=== PATIENT | female | born 1975 | race Caucasian/White ===

== ENCOUNTER 2019-10-07 17:15 | Emergency (ER) | payer OTHER ==
[~2019-10-07] VITALS: Ht 165.1 cm; Wt 63.5 kg
[~2019-10-07 17:15] MED LIST: BACTRIM DS 8001 TA1 PO; CEPHALEXIN500 M1 PO; EC NAPROSYN500 MG PO; MEDROL DOSEPAK4 MG PO; NORCO 5-325 TA1 EACH PO
[2019-10-07 17:16] VITALS: BP 117/63
[2019-10-07 17:46] LABS: BILIRUBIN NEGATIVE (NEGATIVE); BLOOD NEGATIVE (NEGATIVE); CLARITY SL CLOUDY (CLEAR); COLOR YELLOW (YELLOW); GLUCOSE NEGATIVE (NEGATIVE); KETONE NEGATIVE (NEGATIVE); LEUKO ESTERASE TRACE (NEGATIVE); NITRITE NEGATIVE (NEGATIVE); UROBILINOGEN 0.2 E.U./dl (0.2-1.0)
[2019-10-07 17:57] LABS: BACTERIA 1+; EPITHELIAL CELLS 16-20
[2019-10-08] MEDS ORDERED: Motrin,Rufen800 MG PO (17:27)
== END 2019-10-08 18:18 | disposition home or self-care (01) ==
LOC: ED 17:15
PROVIDERS: Nurse Practitioner Family
DX: J02.9 Acute pharyngitis, unspecified (principal); Z20.2 Contact with and (suspected) exposure to infections with a predominantly sexual mode of transmission; Z88.0 Allergy status to penicillin; Z79.2 Long term (current) use of antibiotics; Z79.899 Other long term (current) drug therapy

== ENCOUNTER 2019-10-26 12:36 | Emergency (ER) | payer OTHER ==
[~2019-10-26] VITALS: Ht 165.1 cm; Wt 65.8 kg
[~2019-10-26 12:36] MED LIST changes: +Motrin,Rufen800 MG PO
[2019-10-26 12:37] VITALS: BP 116/78
[2019-10-26] MEDS ORDERED: ZITHROMAX250 MG PO (12:58)
== END 2019-10-26 13:00 | disposition home or self-care (01) ==
LOC: ED 12:36
DX: H66.93 Otitis media, unspecified, bilateral (principal); Z88.0 Allergy status to penicillin; Z79.2 Long term (current) use of antibiotics; Z79.899 Other long term (current) drug therapy

== ENCOUNTER 2020-07-29 15:08 | Emergency (ER) | payer SELFPAY ==
[~2020-07-29] VITALS: Ht 162.5 cm; Wt 72.6 kg
[~2020-07-29 15:08] MED LIST changes: +ZITHROMAX250 MG PO
[2020-07-29 15:14] VITALS: BP 117/75
== END 2020-07-29 16:30 | disposition home or self-care (01) ==
LOC: ED 15:08
DX: S60.012A Contusion of left thumb without damage to nail, initial encounter (principal); F17.200 Nicotine dependence, unspecified, uncomplicated; Z88.0 Allergy status to penicillin; W18.39XA Other fall on same level, initial encounter; Y93.89 Activity, other specified; Y92.89 Other specified places as the place of occurrence of the external cause; Y99.8 Other external cause status

== ENCOUNTER 2021-01-11 15:48 | Emergency (ER) | payer OTHER ==
[2021-01-11 16:07] VITALS: BP 121/76
[2021-01-11 16:20] LABS: BASO # 0.1 10*3/uL (0.0-0.1); BASO % 0.6 % (0.0-1.0); EOS # 0.1 10*3/uL (0.0-0.4); EOS % 0.6 % (1.0-4.0); HEMATOCRIT 42.6 % (37.0-47.0); LYMPH # 2.5 10*3/uL (1.3-4.4); LYMPH % 26.7 % (27.0-41.0); MEAN CELL VOLUME 92.2 fl (81.0-99.0); MEAN CORPUSCULAR HGB 30.5 pg (27.0-31.0); MEAN CORPUSCULAR HGB CONC 33.1 g/dl (33.0-37.0); MEAN PLATELET VOLUME 8.7 fl (9.6-12.3); MONO % 10.4 % (3.0-9.0); NEUT # 5.8 10*3/uL (2.3-7.9); NEUT % 61.3 % (47.0-73.0); PLATELET COUNT AUTOMATED 339 10*3/uL (130-400); RED BLOOD COUNT 4.62 10*6/uL (4.10-5.10); RED CELL DISTRI WIDTH 12.1 % (0-14.5); WHITE BLOOD COUNT 9.4 10*3/uL (4.8-10.8)
[2021-01-11 16:32] LABS: ACT PARTIAL THROMBO TIME 27.2 SECONDS (20.0-32.1)
[2021-01-11 16:42] LABS: ALBUMIN 3.3 gm/dl (3.1-4.5); ALKALINE PHOSPHATASE 67 U/L (45-117); BUN 8 mg/dl (7-24); CHLORIDE 109 mmol/L (98-107); CREATININE 0.56 mg/dL (0.55-1.02); POTASSIUM 3.7 mmol/L (3.5-5.1); SGOT/AST 11 IU/L (3-35); SGPT/ALT 14 U/L (12-78); SODIUM 138 mmol/L (136-145)
[2021-01-11 16:44] LABS: TROPONIN I < 0.015 ng/ml (<0.045)
== END 2021-01-11 18:19 | disposition left against medical advice (07) ==
LOC: ED 15:48
PROVIDERS: Emergency Medicine
DX: R07.89 Other chest pain (principal); Z88.0 Allergy status to penicillin; Z79.899 Other long term (current) drug therapy